=== PATIENT | female | born 1980 | race Caucasian/White ===

== ENCOUNTER 2017-02-17 13:47 | Emergency (ER) | payer SELFPAY ==
[2017-02-17 13:47] VITALS: BMI 25.0
[2017-02-17 14:16] VITALS: RESP 16
[2017-02-17 15:02] LABS: RBC URINE < 1 /hpf (0-3); URINE BILIRUBIN NEGATIVE (NEGATIVE); URINE BLOOD NEGATIVE (NEGATIVE); URINE COLOR Straw (YELLOW); URINE GLUCOSE (UA) NORMAL (Normal); URINE KETONE NEGATIVE (NEGATIVE); URINE LEUKOCYTE ESTERASE 3+ Leu/uL (Negative); URINE PROTEIN NEGATIVE (NEGATIVE); URINE UROBILINOGEN NORMAL mg/dL (0.2-1.0)
[2017-02-17 15:04] LABS: WBC URINE 10 /hpf (0-5)
[2017-02-17] MEDS ORDERED: cefTRIAXone (Rocephin) 250 mg Inj IM STA (15:49)
--- NOTE | 2017-02-17 16:18 | C.PDOC ---
History Of Present Illness Patient is a 36 year old female, who presents to the emergency department complaining of suprapubic pain onset 2 weeks ago. Patient described the pain as burning sensation radiating to the lower back and also reports experiencing abnormal discharge that feels uncomfortable and itchy. She denies any fever or chills. No further medical complaints. PMD: None provided. Time Seen by Provider: 02/17/17 14:33 Chief Complaint (Nursing): Female Genitourinary History Per: Patient History/Exam Limitations: no limitations Onset/Duration Of Symptoms: Days (x2 weeks) Current Symptoms Are (Timing): Still Present Quality Of Discomfort: Burning Associated Symptoms: Urinary Symptoms (abnormal discharge). denies: Fever, Chills Past Medical History Reviewed: Historical Data, Nursing Documentation, Vital Signs Vital Signs: Last Vital Signs Temp 98.0 F 02/17/17 16:25 Pulse 52 L 02/17/17 16:25 Resp 16 02/17/17 16:25 BP 99/63 L 02/17/17 16:25 Pulse Ox 98 02/17/17 21:20 - [facility] DIVISION OF FEMALE PERINEUM, EXTERNAL APPROACH (04/29/15) Family History: States: Unknown Family Hx - Social History Hx Tobacco Use: No Hx Alcohol Use: No Hx Substance Use: No Review Of Systems Except As Marked, All Systems Reviewed And Found Negative. Constitutional: Negative for: Fever, Chills Gastrointestinal: Positive for: Abdominal Pain (Suprapubic abd pain radiating to the lower back) Genitourinary: Positive for: Vaginal Discharge (uncomfortable and itchy), Other Musculoskeletal: Positive for: Back Pain Physical Exam - Physical Exam Appears: No Acute Distress Skin: Normal Color, Warm, Dry Eye(s): bilateral: Normal Inspection Neck: Normal, Normal ROM, Supple Cardiovascular: Rhythm Regular, No Murmur Respiratory: Normal Breath Sounds Gastrointestinal/Abdominal: Normal Exam, Bowel Sounds, Soft, No Tenderness Pelvic: Vaginal Discharge (yellow benitez discharge), No Cervical Motion Tenderness , No Adnexal Tenderness Extremity: Normal ROM, No Deformity, No Swelling Neurological/Psych: Normal Speech, Normal Motor, Normal Sensation ED Course And Treatment O2 Sat by Pulse Oximetry: 98 (RA) Pulse Ox Interpretation: Normal Disposition - Disposition Referrals: [facility] [Outside] Disposition: HOME/ ROUTINE Disposition Time: 16:16 Condition: GOOD Additional Instructions: Follow up with the medical doctor/clinic within 1-2 days. Return if worsened. Prescriptions: Ciprofloxacin [Cipro] 1 tab PO BID #14 tab Metronidazole [Metrogel] 60 gm TP DAILY #2 gel..gram. Phenazopyridine HCl [Pyridium] 200 mg PO TID #7 tablet Instructions: Urinary Tract Infection in Women (ED), Vaginitis (ED) Forms: [employer] (Burundian) Print Language: MONEGASQUE - Clinical Impression Clinical Impression: UTI (urinary tract infection), Vaginitis - Scribe Statement The provider has reviewed the documentation as recorded by the Moralesibjoanie Ortega All medical record entries made by the Leno were at my direction and personally dictated by me. I have reviewed the chart and agree that the record accurately reflects my personal performance of the history, physical exam, medical decision making, and the department course for this patient. I have also personally directed, reviewed, and agree with the discharge instructions and disposition.
[2017-02-17 16:25] VITALS: BP 99/63; PULSE 52; TEMP 98
[2017-02-17 21:20] VITALS: O2SAT 98
== END 2017-02-17 16:33 | disposition home or self-care (01) ==
LOC: C.ER 13:47
DX: N39.0 Urinary tract infection, site not specified (principal); N76.0 Acute vaginitis
CPT/HCPCS: 81001; 84703; 87491; 87591; 96372; 99284; J0696

== ENCOUNTER 2017-03-06 09:50 | Emergency (ER) | payer OTHER, SELFPAY ==
[2017-03-06 09:51] VITALS: BMI 25.0
[2017-03-06 09:58] VITALS: O2SAT 100
--- NOTE | 2017-03-06 11:08 | C.PDOC ---
History Of Present Illness 36 yo female w/o significant PMHx come in for evaluation of diffuse intermittent lower abdominal pain for past month. Pt sts, pain worsen since yesterday, intermittent though, developed some dizziness described as lightheaded. Pt denies fever, chills, headache, vertigo, syncope, visual changes , focal deficits, neck pain, CP, SOB, dyspnea, diaphoresis, palpitation, V/D, change in appetite or food intolerance, back pain, UTI sx, denies BCP use. Pt admits, was seen by [facility] few weeks ago and ref for Transvaginal US " cant wait". Ambulate to Ed for evaluation, not in nay apparent distress. Time Seen by Provider: 03/06/17 10:40 Chief Complaint (Nursing): Abdominal Pain History Per: Patient Past Medical History Reviewed: Historical Data, Nursing Documentation, Vital Signs Vital Signs: Last Vital Signs Temp 97.4 F L 03/06/17 13:45 Pulse 72 03/06/17 13:45 Resp 15 03/06/17 13:45 BP 110/62 03/06/17 13:45 Pulse Ox 100 03/06/17 13:45 - Medical History PMH: No Chronic Diseases Surgical History: No Surg Hx - [facility] DIVISION OF FEMALE PERINEUM, EXTERNAL APPROACH (04/29/15) Family History: States: Unknown Family Hx - Social History Hx Tobacco Use: No Hx Alcohol Use: No Hx Substance Use: No Review Of Systems Except As Marked, All Systems Reviewed And Found Negative. Constitutional: Negative for: Fever, Chills Eyes: Negative for: Vision Change ENT: Negative for: Throat Pain, Throat Swelling Cardiovascular: Negative for: Chest Pain, Palpitations Respiratory: Negative for: Cough, Shortness of Breath, Wheezing Gastrointestinal: Positive for: Abdominal Pain. Negative for: Vomiting, Diarrhea, Melena, Hematochezia, Hematemesis Genitourinary: Negative for: Dysuria Musculoskeletal: Negative for: Neck Pain, Back Pain Skin: Negative for: Rash Neurological: Negative for: Weakness, Numbness, Altered Mental Status, Headache , Dizziness Physical Exam - Physical Exam Appears: Well, Non-toxic, No Acute Distress Skin: Normal Color, Warm, Dry, No Rash Eye(s): bilateral: PERRL Nose: No Flaring, No Discharge Oral Mucosa: Moist Throat: No Erythema, No Exudate, No Drooling Neck: Trachea Midline, Supple Cardiovascular: Rhythm Regular Respiratory: No Decreased Breath Sounds, No Accessory Muscle Use, No Stridor, No Wheezing Gastrointestinal/Abdominal: Soft, No Tenderness, No Distention, No Guarding, No Rebound Back: No CVA Tenderness Extremity: Normal ROM, No Pedal Edema Neurological/Psych: Oriented x3, Normal Speech ED Course And Treatment - Laboratory Results Result Diagrams: 03/06/17 11:01 03/06/17 11:01 Lab Interpretation: Normal Urine POC: Negative O2 Sat by Pulse Oximetry: 100 Pulse Ox Interpretation: Normal - CT Scan/US US transvaginal Other Rad Studies (CT/US): Radiology Report Reviewed CT/US Interpretation: Accession No. : [id number]. Patient Name / ID : CORINA ROCA / [id number]. Exam Date : 03/06/2017 12:40:23 ( Approved ). Study Comment : Sex / Age : F / 36Y. Creator : Federica Jarquin MD. Dictator : Federica Jarquin MD. Sales Representative Sales Manager : Grain Origination Specialist : Federica Jarquin MD. Approver2 : Report Date : 03/06/2017 13:00:54. My Comment : . HISTORY: diffuse lower abdominal pain. COMPARISON: None available. TECHNIQUE: Real-time transabdominal pelvic ultrasound was performed. In addition a transvaginal pelvic ultrasound was necessary to better depict pelvic anatomy. FINDINGS: UTERUS: Measures 8.8 x 4.3 x 6.0 cm. Retroverted. ENDOMETRIUM: Measures 1 cm in diameter. CERVIX: No cervical abnormality identified. RIGHT OVARY: Measures 3.5 x 2.1 x 2.8 cm. Blood flow is demonstrated. LEFT OVARY: Measures 4.2 x 1.9 x 3.5 cm. Blood flow is demonstrated. 1.9 x 1.3 x 1.7 cm left ovarian anechoic avascular lesion consistent with dominant follicle/cyst. FREE FLUID: No significant free fluid noted. OTHER FINDINGS: None. IMPRESSION: 1.9 cm left ovarian dominant follicle/cyst. Progress Note: On re-evaluation, pt resting comofratbly, not in any apparent distress. Afebrile, hemodynamicaly stable. Tolerate Po well in ED. Non-toxic. ENT: no acute findings. Lungs: CTA B/L, BS equal B/L. Abd: benign, (-) guarding, (-) rebound, (-) localized tenderenss. Back: (-) CVAtenderness. Blood work, UA review and appears normal. Imaging (+) Left ovarian cyst. results review an discussed with pt. Advsied to F/U with [facility] In2 -3 days for re -eavl. return to ED if any worsening or new changes. Disposition Counseled Patient/Family Regarding: Studies Performed, Diagnosis, Need For Followup, Rx Given - [facility]position [facility] Disposition: HOME/ ROUTINE Disposition Time: 13:02 Condition: STABLE Additional Instructions: Take pain medication as prescribed Follow up with [facility] in 2-3 days for re-evaluation. Return to ED if any worsening or new changes. Prescriptions: traMADol [Ultram] 50 mg PO TID #7 tab Instructions: Ovarian Cyst (ED) Forms: [employer] (Italian) Print Language: ESTONIAN - Clinical Impression Clinical Impression: Ovarian cyst
[2017-03-06 11:11] LABS: BASO % 0.5 % (0.0-2.0); EOS % 0.5 % (0.0-4.0); HEMATOCRIT 42.4 % (34.0-47.0); LYMPH # 2.1 K/uL (1.0-4.3); LYMPH % 36.4 % (20.0-40.0); MEAN CELL VOLUME 85.6 fL (81.0-99.0); MEAN CORPUSCULAR HEMOGLOBIN 29.7 pg (27.0-31.0); MEAN CORPUSCULAR HGB CONC 34.7 g/dL (33.0-37.0); MEAN PLATELET VOLUME 9.8 fL (7.2-11.7); MONO # 0.4 K/uL (0.0-0.8); MONO % 7.7 % (0.0-10.0); NRBC % 0.1 % (0.0-2.0); RED CELL DISTRIBUTION WIDTH 12.6 % (11.5-14.5); WHITE BLOOD COUNT 5.7 K/uL (4.8-10.8)
[2017-03-06 11:17] LABS: INR 1.1
[2017-03-06 11:20] LABS: RBC URINE < 1 /hpf (0-3); URINE BILIRUBIN NEGATIVE (NEGATIVE); URINE BLOOD NEGATIVE (NEGATIVE); URINE COLOR Yellow (YELLOW); URINE GLUCOSE (UA) NORMAL (Normal); URINE KETONE NEGATIVE (NEGATIVE); URINE LEUKOCYTE ESTERASE NEG Leu/uL (Negative); URINE PROTEIN NEGATIVE (NEGATIVE); URINE UROBILINOGEN NORMAL mg/dL (0.2-1.0); WBC URINE 1 /hpf (0-5)
[2017-03-06 11:21] LABS: CHLORIDE 104 mmol/L (98-107); SODIUM 136 mmol/L (132-148)
[2017-03-06 11:22] LABS: POTASSIUM 3.9 mmol/L (3.6-5.2)
[2017-03-06 11:24] LABS: ALB/GLOB RATIO 1.2 (1.0-2.1); ALKALINE PHOSPHATASE 48 U/L (38-126); ALT/SGPT 36 U/L (9-52); AST/SGOT 16 U/L (14-36); BILIRUBIN,TOTAL 1.1 mg/dL (0.2-1.3); BLOOD UREA NITROGEN 12 mg/dL (7-17); CALCIUM 9.2 mg/dl (8.6-10.4); CARBON DIOXIDE 21 mmol/L (22-30); GFR AFRICAN-AMERICAN > 60; GLUCOSE,RANDOM 75 mg/dL (65-105)
--- NOTE | 2017-03-06 13:02 | US ---
HISTORY: diffuse lower abdominal pain COMPARISON: None available. TECHNIQUE: Real-time transabdominal pelvic ultrasound was performed. In addition a transvaginal pelvic ultrasound was necessary to better depict pelvic anatomy. FINDINGS: UTERUS: Measures 8.8 x 4.3 x 6.0 cm. Retroverted. ENDOMETRIUM: Measures 1 cm in diameter. CERVIX: No cervical abnormality identified. RIGHT OVARY: Measures 3.5 x 2.1 x 2.8 cm. Blood flow is demonstrated. LEFT OVARY: Measures 4.2 x 1.9 x 3.5 cm. Blood flow is demonstrated. 1.9 x 1.3 x 1.7 cm left ovarian anechoic avascular lesion consistent with dominant follicle/cyst. FREE FLUID: No significant free fluid noted. OTHER FINDINGS: None. IMPRESSION: 1.9 cm left ovarian dominant follicle/cyst.
[2017-03-06 14:06] VITALS: BP 110/62; PULSE 72; RESP 15; TEMP 97.4
== END 2017-03-06 13:45 | disposition home or self-care (01) ==
LOC: C.ER 09:50
DX: N83.202 Unspecified ovarian cyst, left side (principal)

== ENCOUNTER 2017-04-25 15:37 | Emergency (ER) | payer OTHER ==
[2017-04-25 15:37] VITALS: BMI 25.7
[2017-04-25 16:00] VITALS: TEMP 98
[2017-04-25 16:57] LABS: BASO # 0.1 K/uL (0.0-0.2); EOS # 0.1 K/uL (0.0-0.7); EOS % 0.8 % (0.0-4.0); HEMATOCRIT 40.3 % (34.0-47.0); LYMPH # 2.4 K/uL (1.0-4.3); LYMPH % 36.4 % (20.0-40.0); MEAN CELL VOLUME 86.3 fL (81.0-99.0); MEAN CORPUSCULAR HEMOGLOBIN 28.7 pg (27.0-31.0); MEAN CORPUSCULAR HGB CONC 33.3 g/dL (33.0-37.0); MEAN PLATELET VOLUME 10.1 fL (7.2-11.7); MONO # 0.5 K/uL (0.0-0.8); MONO % 8.1 % (0.0-10.0); RED CELL DISTRIBUTION WIDTH 13.5 % (11.5-14.5); WHITE BLOOD COUNT 6.7 K/uL (4.8-10.8)
--- NOTE | 2017-04-25 16:58 | C.PDOC ---
History Of Present Illness 36 yo female w/o significant PMHx come in for evaluation of intermittent left sided chest pain developed since yesterday 8 PM. Pt describes pain as sharp, intermittent, left sided. Today, pt developed nos left sided facial numbness radiating down to Left arm tingling sensation. AT present time, pt grade pain as 5/10. Otherwise, pt denies previous hx of card. ds, denies trauma, or injury , fever, chills, recent illness, headache, dizziness, neck pain, SOB, dyspnea, diaphoresis, palpitation ( contrary to triage), abd. pain, V/D, back pain, UTI sx, denies recent travel or immobilization, denies B/L lower legs pain. Ambulate to ED for evaluation, not in any apparent distress. Time Seen by Provider: 04/25/17 16:17 Chief Complaint (Nursing): Chest Pain History Per: Patient Onset/Duration Of Symptoms: Intermittent Episodes Past Medical History Reviewed: Historical Data, Nursing Documentation, Vital Signs Vital Signs: Last Vital Signs Temp 98.0 F 04/25/17 15:57 Pulse 61 04/25/17 15:57 Resp 20 04/25/17 15:57 BP 123/76 04/25/17 15:57 Pulse Ox 100 04/25/17 18:16 - Medical History PMH: No Chronic Diseases Surgical History: No Surg Hx - [facility] DIVISION OF FEMALE PERINEUM, EXTERNAL APPROACH (04/29/15) Family History: States: Hypertension Denies: [place], CAD - Social History Hx Tobacco Use: No Hx Alcohol Use: No Hx Substance Use: No - Immunization History Hx Tetanus Toxoid Vaccination: Yes Hx Influenza Vaccination: No Hx Pneumococcal Vaccination: No Review Of Systems Except As Marked, All Systems Reviewed And Found Negative. Constitutional: Negative for: Fever, Chills Eyes: Negative for: Vision Change ENT: Negative for: Ear Pain Cardiovascular: Positive for: Chest Pain. Negative for: Palpitations, Paroxysmal Noc. Dyspnea, Edema, Light Headedness Respiratory: Negative for: Cough, Shortness of Breath, Wheezing Gastrointestinal: Negative for: Nausea, Vomiting, Abdominal Pain, Diarrhea Genitourinary: Negative for: Dysuria, Frequency, Incontinence Skin: Negative for: Rash Neurological: Negative for: Weakness, Numbness, Altered Mental Status, Headache , Dizziness Physical Exam - Physical Exam Appears: Well, Non-toxic, No Acute Distress Skin: Normal Color, Warm, Dry, No Rash Head: Normacephalic Eye(s): bilateral: PERRL Nose: No Discharge Oral Mucosa: Moist, No Drooling Throat: No Drooling Neck: Trachea Midline, Supple Cardiovascular: Rhythm Regular, No Murmur, No JVD Respiratory: No Decreased Breath Sounds, No Accessory Muscle Use, No Rales, No Rhonchi, No Stridor, No Wheezing Gastrointestinal/Abdominal: Soft, No Tenderness, No Distention, No Guarding Back: No CVA Tenderness Extremity: Normal ROM, No Pedal Edema, No Deformity, No Swelling Neurological/Psych: Oriented x3, Normal Speech, Normal Motor, Normal Sensation, Normal Reflexes ED Course And Treatment - Laboratory Results Result Diagrams: 04/25/17 16:54 04/25/17 16:54 Lab Interpretation: Normal ECG: Interpreted By Me, Viewed By Me Interpretation Of ECG: SR@67/min, NAD, T wave inversion in III, no acute ST-T Changes. NO old EKG available O2 Sat by Pulse Oximetry: 100 (RA) Pulse Ox Interpretation: Normal - Radiology CXR: Viewed By Me, Read By Radiologist CXR Interpretation: Yes: No Acute Disease Progress Note: Blood work review, D-DImer high. CTA r/o PE order. Pt was OBS in ED for 3 hours and remained stable. On re-evaluation, pt is afebrile, hemodynamicaly stable. NOn-toxic. PUlseOx 100% RA. ENT: no acute findings. Neck: Supple, (-) JVD, (-) carotid bruits B/L. Lungs: CTA B/L, BS equal B/L. CVS: (+)S1S2, reg. ABd: benign. Neuorlogicaly intact. Case discussed with , sign out. CTA r/o PE pending. Disposition - Disposition Disposition Time: 18:57 Condition: STABLE Forms: [facility] (Turkmen) - Clinical Impression Clinical Impression: Chest pain Physician Patient Turnover Patient Signed Over To: Lamberto Acosta DO Handoff Comments: CTA r/o PE
--- NOTE | 2017-04-25 16:58 | RAD ---
HISTORY: chest pain COMPARISON: No prior. TECHNIQUE: Chest PA and lateral FINDINGS: LUNGS: No active pulmonary disease. PLEURA: No significant pleural effusion identified. No pneumothorax apparent. CARDIOVASCULAR: Normal. OSSEOUS STRUCTURES: No significant abnormalities. VISUALIZED UPPER ABDOMEN: Normal. OTHER FINDINGS: None. IMPRESSION: No active disease.
[2017-04-25 17:25] LABS: ALKALINE PHOSPHATASE 40 U/L (38-126); ALT/SGPT 39 U/L (9-52); AST/SGOT 22 U/L (14-36); BILIRUBIN,TOTAL 0.9 mg/dL (0.2-1.3); BLOOD UREA NITROGEN 11 mg/dL (7-17); CALCIUM 8.8 mg/dl (8.6-10.4); CARBON DIOXIDE 27 mmol/L (22-30); CHLORIDE 105 mmol/L (98-107); GFR AFRICAN-AMERICAN > 60; GLUCOSE,RANDOM 102 mg/dL (65-105); POTASSIUM 3.7 mmol/L (3.6-5.2); SODIUM 139 mmol/L (132-148); TOTAL PROTEIN 7.8 g/dL (6.3-8.3)
[2017-04-25 17:41] LABS: RBC URINE < 1 /hpf (0-3); URINE BILIRUBIN NEGATIVE (NEGATIVE); URINE BLOOD NEGATIVE (NEGATIVE); URINE COLOR Yellow (YELLOW); URINE GLUCOSE (UA) NORMAL (Normal); URINE KETONE NEGATIVE (NEGATIVE); URINE LEUKOCYTE ESTERASE NEG Leu/uL (Negative); URINE PROTEIN NEGATIVE (NEGATIVE); URINE UROBILINOGEN NORMAL mg/dL (0.2-1.0); WBC URINE 1 /hpf (0-5)
[2017-04-25] MEDS ORDERED: Iodixanol 320 mg/ml 150 ml Bottle IV ONE (18:39)
--- NOTE | 2017-04-25 20:43 | CARD ---
APPROVED REPORT EKG Measurement Heart [id number] <Conclusion> Normal sinus rhythm Normal ECG
--- NOTE | 2017-04-25 21:24 | CT ---
EXAM: CT Angiography Chest With Intravenous Contrast EXAM DATE/TIME: 04/25/2017 6:09 PM CLINICAL HISTORY: 36 years old, female; Signs and symptoms; Shortness of breath; Additional info: Cp TECHNIQUE: Axial computed tomographic angiography images of the chest with intravenous contrast using pulmonary embolism protocol. All CT scans at this facility use one or more dose reduction techniques, viz.: automated exposure control; ma/kV adjustment per patient size (including targeted exams where dose is matched to indication; i.e. head); or iterative reconstruction technique. MIP reconstructed images were created and reviewed. Coronal and sagittal reformatted images were created and reviewed. CONTRAST: 100 mL of visipaque 320 administered intravenously. COMPARISON: There are no prior studies for comparison. FINDINGS: Heart, aorta and Pulmonary arteries: Heart size is normal. There is no pericardial effusion.There is no aneurysm or dissection. There is perfusion of the 3 arch vessels. Main pulmonary arteries normal in caliber. There are no central pulmonary emboli. Bolus timing limits evaluation of peripheral pulmonary arteries. There are no large peripheral pulmonary emboli in Lungs and pleural spaces: Trachea and main bronchi are patent.There is no pneumothorax. There is minimal dependent atelectasis and scarring at the lung bases. There is no focal consolidation. The there is minimal pleural thickening greatest in the posterior left hemithorax. There are no effusions. Mediastinum: Esophagus is unremarkable. There are no pathologically enlarged mediastinal or hilar nodes. Thyroid: Thyroid is not optimally demonstrated. Bones/joints: There are no acute osseous abnormalities. Soft tissues: unremarkable Upper abdomen: There are no acute abnormalities in the visualized portion of the abdomen. IMPRESSION: Slightly limited by bolus timing, no aneurysm, dissection or pulmonary embolus, no focal pneumonia
[2017-04-25 21:26] VITALS: BP 103/61; PULSE 58; RESP 16; O2SAT 99
== END 2017-04-25 21:57 | disposition home or self-care (01) ==
LOC: C.ER 15:37
DX: R07.9 Chest pain, unspecified (principal)
CPT/HCPCS: 71020; 71275; 80053; 81001; 84484; 84703; 85025; 85378; 93005; 99285; Q9967

== ENCOUNTER 2017-09-28 14:02 | Emergency (ER) | payer OTHER ==
[2017-09-28 14:02] VITALS: BMI 25.3
--- NOTE | 2017-09-28 14:39 | C.PDOC ---
History Of Present Illness 37 year old female with a history of migraines prior to her menses presents to the emergency department with complaints of pain to the left side of her head with a gradual onset 3 days ago. Patient reports her pain presents similar to prior headaches. Patient reports she took prescrbied medication which she cannot remember the name without relief, stating that it had a side effect of rapid heartbeat so she stopped taking it. Patient states that she has taken Tylenol since with mild relief. Patient states she is experiencing nausea and photophobia, but denies neck stiffness or fever. Time Seen by Provider: 09/28/17 14:12 Chief Complaint (Nursing): Headache History Per: Patient History/Exam Limitations: no limitations Onset/Duration Of Symptoms: Gradual, Other (once a month prior to menses) Current Symptoms Are (Timing): Still Present Quality: "Pain" Associated Symptoms: Photophobia, Nausea Past Medical History Reviewed: Historical Data, Nursing Documentation, Vital Signs Vital Signs: Last Vital Signs Temp 98.3 F 09/28/17 15:28 Pulse 58 L 09/28/17 15:28 Resp 16 09/28/17 15:28 BP 104/69 09/28/17 15:28 Pulse Ox 98 09/28/17 22:31 - Medical History PMH: Migraine Surgical History: No Surg Hx - [facility] DIVISION OF FEMALE PERINEUM, EXTERNAL APPROACH (04/29/15) Family History: States: Hypertension Denies: [place], CAD - Social History Hx Tobacco Use: No Hx Alcohol Use: No Hx Substance Use: No - Immunization History Hx Tetanus Toxoid Vaccination: Yes Hx Influenza Vaccination: No Hx Pneumococcal Vaccination: No Review Of Systems Constitutional: Negative for: Fever (s) Gastrointestinal: Positive for: Nausea Musculoskeletal: Negative for: Neck Pain (stiffness) Neurological: Positive for: Headache, Other (photophobia) Physical Exam - Physical Exam Appears: Non-toxic, No Acute Distress Skin: Warm, Dry Head: Atraumatic, Normacephalic Eye(s): bilateral: Normal Inspection, PERRL, EOMI Neck: Normal ROM, Supple Cardiovascular: Rhythm Regular, No Murmur Respiratory: Normal Breath Sounds, No Rales, No Rhonchi, No Wheezing Back: No CVA Tenderness, No Vertebral Tenderness, No Paraspinal Tenderness Neurological/Psych: Oriented x3, Normal Speech, Normal Cognition, Normal Cranial Nerves, Normal Motor, Normal Sensation ED Course And Treatment O2 Sat by Pulse Oximetry: 98 (RA) Pulse Ox Interpretation: Normal Progress Note: Plan: Reglan 10mg IVBP. POC Urine Test Medical Decision Making Medical Decision Making: pt report s pain resolved, feels better. will d/c home, outpt clinic f/u recommended for med re-eval. Disposition Counseled Patient/Family Regarding: Diagnosis, Need For Followup - Disposition Referrals: [facility] [Outside] Disposition: HOME/ ROUTINE Disposition Time: 15:21 Condition: IMPROVED Additional Instructions: Por favor juan c un seguimiento en la clnica mdica y reevale los medicamentos. Regrese a la abdias de emergencias por cualquier sntoma peor. Please follow up in medical clinic and have medications reevaluated. Return to ER for any worse symptoms. Instructions: Headache, Adult (DC) Forms: Gen Discharge Inst [place] [employer], [employer] ([place] Citizen) Print Language: PANAMANIAN - Clinical Impression Clinical Impression: Headache - PA / DOOR CLAMPER / Resident Statement MD/DO has reviewed & agrees with the documentation as recorded. - Scribe Statement The provider has reviewed the documentation as recorded by the Scribe (Hector Hanna) All medical record entries made by the Scribe were at my direction and personally dictated by me. I have reviewed the chart and agree that the record accurately reflects my personal performance of the history, physical exam, medical decision making, and the department course for this patient. I have also personally directed, reviewed, and agree with the discharge instructions and disposition.
[2017-09-28 15:29] VITALS: BP 104/69; PULSE 58; RESP 16; TEMP 98.3
[2017-09-28 22:32] VITALS: O2SAT 98
== END 2017-09-28 15:28 | disposition home or self-care (01) ==
LOC: C.ER 14:02
DX: R51 Headache (principal)
CPT/HCPCS: 96374; 99285; J2765

== ENCOUNTER 2018-07-02 09:21 | Emergency (ER) | payer OTHER ==
[2018-07-02 09:21] VITALS: BMI 25.3
[2018-07-02 09:30] VITALS: RESP 18; TEMP 98.1
--- NOTE | 2018-07-02 10:01 | C.PDOC ---
History Of Present Illness 37 y/o F c no PMHx p/w L sided flank pain x 1 month, worse in the last day. Reports as in the LUQ, under the ribs, radiating to L lower back. Reports nausea and diarrhea. Denies fever, chills, vomiting, dysuria, hematuria. LMP on the . Time Seen by Provider: 07/02/18 09:40 Chief Complaint (Nursing): Abdominal Pain Past Medical History Vital Signs: Last Vital Signs Temp 98.1 F 07/02/18 09:29 Pulse 77 07/02/18 09:29 Resp 18 07/02/18 09:29 BP 104/69 07/02/18 09:29 Pulse Ox 99 07/02/18 09:29 - Medical History PMH: Kidney Stones, Migraine, Chronic Kidney Disease - [facility] DIVISION OF FEMALE PERINEUM, EXTERNAL APPROACH (04/29/15) Family History: States: Hypertension Denies: [place], CAD - Social History Hx Tobacco Use: No Hx Alcohol Use: No Hx Substance Use: No - Immunization History Hx Tetanus Toxoid Vaccination: Yes Hx Influenza Vaccination: No Hx Pneumococcal Vaccination: No Review Of Systems Except As Marked, All Systems Reviewed And Found Negative. Constitutional: Negative for: Fever Respiratory: Negative for: Shortness of Breath Physical Exam - Physical Exam Additional Physical Exam Comments: Constitutional: No acute distress. Head: Normocephalic. Atraumatic. Eyes: PERRL. ENT: Moist mucous membranes. Neck: Supple. Cardiovascular: Regular rate. Radial pulse 2+ bilaterally. Chest: No tenderness. Respiratory: Clear to auscultation bilaterally. GI: Soft. Nontender. Nondistended. Back: No CVA tenderness. Musculoskeletal: No tenderness or swelling of extremities. Skin: No rash. Neurologic: Alert, no focal deficit. ED Course And Treatment - Laboratory Results Result Diagrams: 07/02/18 10:18 07/02/18 10:18 O2 Sat by Pulse Oximetry: 99 Medical Decision Making Medical Decision Making: CXR Results HISTORY: L sided pain under rib cage COMPARISON: Chest x-ray performed 04/25/17 TECHNIQUE: Chest PA and lateral FINDINGS: LUNGS: No focal consolidation. Please note that chest x-ray has limited sensitivity for the detection of pulmonary masses. PLEURA: No significant pleural effusion identified. No definite pneumothorax . CARDIOVASCULAR: The cardiomediastinal silhouette appears within normal limits of size. No atherosclerotic calcification present. OSSEOUS STRUCTURES: No acute osseous abnormality identified. VISUALIZED UPPER ABDOMEN: Unremarkable. OTHER FINDINGS: None. IMPRESSION: No focal consolidation. Patient feels better. Work up unremarkable. Will discharge home, f/u clinic, return to ED for worsening pain, vomiting, dyspnea, dysuria, or any other problem. Disposition - Disposition Disposition: HOME/ ROUTINE Disposition Time: 12:04 Condition: STABLE Prescriptions: Ondansetron ODT [Zofran ODT] 4 mg PO Q8 #12 odt Instructions: Acute Abdomen (Belly Pain) Forms: [facility] (Brazilian), Gen Discharge Inst [employer] Print Language: ENGLISH - Clinical Impression Clinical Impression: Abdominal pain
[2018-07-02 10:29] LABS: BASO # 0.1 K/uL (0.0-0.2); EOS # 0.1 K/uL (0.0-0.7); EOS % 0.9 % (0.0-4.0); HCG,QUALITATIVE URINE NEGATIVE (NEGATIVE); HEMOGLOBIN 13.8 g/dL (11.0-16.0); LYMPH # 1.9 K/uL (1.0-4.3); LYMPH % 32.2 % (20.0-40.0); MEAN CELL VOLUME 87.7 fL (81.0-99.0); MEAN CORPUSCULAR HEMOGLOBIN 29.4 pg (27.0-31.0); MEAN CORPUSCULAR HGB CONC 33.5 g/dL (33.0-37.0); MEAN PLATELET VOLUME 10.2 fL (7.2-11.7); MONO # 0.6 K/uL (0.0-0.8); MONO % 9.8 % (0.0-10.0); NEUT # 3.3 K/uL (1.8-7.0); NEUT % 56.1 % (50.0-75.0); NRBC % 0.1 % (0.0-2.0); RBC 4.71 Mil/uL (3.80-5.20); RED CELL DISTRIBUTION WIDTH 12.8 % (11.5-14.5); WHITE BLOOD COUNT 5.9 K/uL (4.8-10.8)
[2018-07-02 10:39] LABS: SQUAMOUS EPITHIAL 1 /hpf (0-5); URINE BILIRUBIN NEGATIVE (NEGATIVE); URINE BLOOD NEGATIVE (NEGATIVE); URINE CLARITY Clear (Clear); URINE COLOR Yellow (YELLOW); URINE GLUCOSE (UA) NORMAL (Normal); URINE LEUKOCYTE ESTERASE TRACE Leu/uL (Negative); URINE PROTEIN NEGATIVE (NEGATIVE)
[2018-07-02 10:40] LABS: ALB/GLOB RATIO 1.5 (1.0-2.1); ALBUMIN 4.2 g/dL (3.5-5.0); BLOOD UREA NITROGEN 13 mg/dL (7-17); CALCIUM 9.3 mg/dl (8.6-10.4); GFR NON-AFRICAN AMERICAN > 60; LIPASE 107 U/L (23-300)
[2018-07-02 10:45] LABS: ALT/SGPT 10 U/L (9-52); AST/SGOT 23 U/L (14-36)
--- NOTE | 2018-07-02 11:16 | RAD ---
HISTORY: L sided pain under rib cage COMPARISON: Chest x-ray performed 04/25/17 TECHNIQUE: Chest PA and lateral FINDINGS: LUNGS: No focal consolidation. Please note that chest x-ray has limited sensitivity for the detection of pulmonary masses. PLEURA: No significant pleural effusion identified. No definite pneumothorax . CARDIOVASCULAR: The cardiomediastinal silhouette appears within normal limits of size. No atherosclerotic calcification present. OSSEOUS STRUCTURES: No acute osseous abnormality identified. VISUALIZED UPPER ABDOMEN: Unremarkable. OTHER FINDINGS: None. IMPRESSION: No focal consolidation.
[2018-07-02 12:17] VITALS: BP 124/81; PULSE 56; O2SAT 100
== END 2018-07-02 12:20 | disposition home or self-care (01) ==
LOC: C.ER 09:21
DX: R10.12 Left upper quadrant pain (principal); N18.9 Chronic kidney disease, unspecified; Z87.442 Personal history of urinary calculi
CPT/HCPCS: 71046; 80053; 81001; 83690; 84703; 85025; 87086; 96374; 96375; 99284; J1885; J2405